=== PATIENT | male | born 1960 | race Caucasian/White ===

== ENCOUNTER 2016-11-05 23:39 | Emergency (ER) | payer MEDICAID ==
[~2016-11-05] VITALS: Ht 180.3 cm; Wt 68.0 kg
[2016-11-06 00:02] VITALS: Ht 180.3 cm; Wt 68.0 kg
[2016-11-06 02:45] LABS: ALBUMIN 3.4 g/dl (3.3-4.9); CHLORIDE 100 mmol/L (97-110)
[2016-11-06 02:46] LABS: POTASSIUM 3.3 mmol/L (3.5-5.1); SODIUM 137 mmol/L (135-144)
[2016-11-06 02:48] LABS: ALANINE AMINOTRANSFERASE 55 IU/L (13-69); ALKALINE PHOSPHATASE 80 IU/L (42-121); ANION GAP 12 (8-16); ASPARTATE AMINO TRANSFERASE 61 IU/L (15-46); BILIRUBIN,INDIRECT 1.1 mg/dl (0-1.1); BILIRUBIN,TOTAL 1.1 mg/dl (0.2-1.3); BLOOD UREA NITROGEN 18 mg/dl (7-20); CARBON DIOXIDE 28 mmol/L (21-31); CREATININE 0.78 mg/dl (0.61-1.24); GLUCOSE 105 mg/dl (70-220)
[2016-11-06 02:49] LABS: CALCIUM 8.6 mg/dl (8.4-10.2)
[2016-11-06 02:50] LABS: ACETAMINOPHEN < 10.0 ug/ml (10.0-30.0); ETHANOL < 10.0 mg/dl; SALICYLATE < 1.0 mg/dl (5.0-30.0)
[2016-11-06 02:55] LABS: BASOPHILS % 0.5 % (0.0-2.0); EOSINOPHILS % 0.7 % (0.0-7.0); HEMATOCRIT 36.4 % (42.0-52.0); HEMOGLOBIN 12.2 g/dl (14.0-18.0); LYMPHOCYTES # 1.4 10^3/ul (0.8-2.9); LYMPHOCYTES % 23.5 % (15.0-51.0); MEAN CORPUSCULAR HEMOGLOBIN 32.1 pg (29.0-33.0); MEAN CORPUSCULAR HGB CONC 33.6 g/dl (32.0-37.0); MEAN CORPUSCULAR VOLUME 95.4 fl (82.0-101.0); MEAN PLATELET VOLUME 7.9 fl (7.4-10.4); MONOCYTE # 0.7 10^3/ul (0.3-0.9); MONOCYTES % 11.3 % (0.0-11.0); NEUTROPHIL # 3.9 10^3/ul (1.6-7.5); PLATELET COUNT 286 10^3/UL (140-440); RED BLOOD COUNT 3.82 10^6/ul (4.70-6.10); RED CELL DISTRIBUTION WIDTH 12.8 % (11.5-14.5); UNCORRECTED WBC 6.1 10^3/ul (4.8-10.8); WHITE BLOOD COUNT 6.1 10^3/ul (4.8-10.8)
[2016-11-06 02:59] LABS: ADD UMIC NO; URINE BILIRUBIN (Dip) NEGATIVE (NEGATIVE); URINE BLOOD (Dip) NEGATIVE (NEGATIVE); URINE COLOR LT. YELLOW (YELLOW); URINE GLUCOSE (Dip) NEGATIVE (NEGATIVE); URINE KETONES (Dip) TRACE (NEGATIVE); URINE LEUKOCYTE ESTERASE (Dip) NEGATIVE (NEGATIVE); URINE NITRITE (Dip) NEGATIVE (NEGATIVE); URINE TOTAL PROTEIN (Dip) NEGATIVE (NEGATIVE); URINE UROBILINOGEN (Dip) 4.0 E.U./dL (0.1-1.0)
[2016-11-06 03:07] LABS: CONDITION 1
[2016-11-06 03:11] LABS: BARBITURATES Negative (NEGATIVE)
[2016-11-06 03:12] LABS: CANNABINOIDS Negative (NEGATIVE)
[2016-11-06 03:18] LABS: BENZODIAZEPINES Negative (NEGATIVE); COCAINE Positive (NEGATIVE); OPIATES Negative (NEGATIVE)
--- NOTE | 2016-11-06 04:51 | PSY ---
Date/Time of Note Date/Time of Note DATE: 11/06/16 TIME: 04:27 Psychiatric Subjective Eval Consent Pt consented to telemedicine: Yes Subjective Evaluation Patient location: emergency Chief Complaint: power found running in traffic, states having suicidal thoughts Reason for consult: safety History of present illness 56 year old homeless male with history of depression and schizophrenia was brought in by police for SI with plan. He was found walking in traffic and admitted to SI with plan to kill himself by trying to get hit by a car. He reports 3 prior suicide attempts, including one time by running into traffic and getting hit by a car. Patient reports having multiple family problems and relationship issues that have contributed to depressed mood. He reports he had problems with alcohol but has been able to be sober for sometime, and then relapsed to cocaine yesterday. He also has auditory hallucinations of voices telling him to kill himself. He is calm and cooperative in hospital. He reports he has been taking zyprexa 5mg qhs, depakote 500mg qam, effexor 150mg daily, and benadryl 50mg qhs. Unclear who is medication provider is. Patient is a difficult historian. Patient has significant abnormal body movements resembling tics. Patient initially attributes it to dehydration but then states he has had this problem on and off for some time now. Past psychiatric history 3 suicide attempts. Multiple prior psychiatric hospitalizations. Does not recall when last hospitalization was. Hospitalization: yes Family History Father completed suicide Medical history see medical record Substance Abuse Substance abuse history: Yes (cocaine, alcohol) Social History Marital status: single Level of education: 10th grade DPA/Conservatorship: No Occupation/Snf: on [employer] Psychiatric Objective Eval Physical Examination: Sleep: Insomnia Appetite: Decreased Energy: Decreased Interest: Decreased Mental Status Examination: Appearance: Poor Hygiene Eye Contact: Poor Psychomotor Activity: Agitated Behavior: Cooperative Speech: Slurred AFFECT: Constricted, Guarded Mood: Depressed Though Process: Tangential Thought Content: Hallucinations Suicidal: Yes Homicidal: No Orientation: x3 Cognition: Alert Insight: Intact Judgement: Impared Attention Span: Intact Laboratory Results Laboratory Tests Test 11/06/16 02:08 11/06/16 02:19 Urine Amphetamines Screen Negative Urine Barbiturates Negative Urine Benzodiazepines Screen Negative Urine Bilirubin NEGATIVE Urine Cannabinoids Negative Urine Clarity CLEAR Urine Cocaine Screen Positive Urine Color LT. YELLOW Urine Glucose NEGATIVE% Urine Hemoglobin NEGATIVE Urine Ketones TRACE Urine Leukocyte Esterase NEGATIVE Urine Nitrite NEGATIVE Urine Opiates Screen Negative Urine Specific [place] 1.015 Urine Total Protein NEGATIVE Urine Urobilinogen 4.0 E.U./dL Urine pH 6.0 Acetaminophen Level < 10.0ug/ml Alanine Aminotransferase (ALT/SGPT) 55IU/L Albumin 3.4g/dl Albumin/Globulin Ratio 1.30 Alkaline Phosphatase 80IU/L Anion Gap 12 Aspartate Amino Transf (AST/SGOT) 61IU/L Basophils # 0.010^3/ul Basophils % 0.5% Blood Urea Nitrogen 18mg/dl Calcium Level 8.6mg/dl Carbon Dioxide Level 28mmol/L Chloride Level 100mmol/L Creatinine 0.78mg/dl Direct Bilirubin 0.00mg/dl Eosinophils # 0.010^3/ul Eosinophils % 0.7% Ethyl Alcohol Level < 10.0mg/dl Globulin 2.60g/dl Glucose Level 105mg/dl Hematocrit 36.4% Hemoglobin 12.2g/dl Indirect Bilirubin 1.1mg/dl Lymphocytes # 1.410^3/ul Lymphocytes % 23.5% Mean Corpuscular Hemoglobin 32.1pg Mean Corpuscular Hemoglobin Concent 33.6g/dl Mean Corpuscular Volume 95.4fl Mean Platelet Volume 7.9fl Monocytes # 0.710^3/ul Monocytes % 11.3% Neutrophils # 3.910^3/ul Neutrophils % 64.0% Nucleated Red Blood Cells # 0.010^3/ul Nucleated Red Blood Cells % 0.0/100WBC Platelet Count 41883^3/UL Potassium Level 3.3mmol/L Red Blood Count 3.8210^6/ul Red Cell Distribution Width 12.8% Salicylates Level < 1.0mg/dl Sodium Level 137mmol/L Total Bilirubin 1.1mg/dl Total Protein 6.0g/dl White Blood Count 6.110^3/ul Assessment and Plan Assessment/Diagnosis [place] I: F39 Mood disorder unspecified. r/o bipolar disorder, r/o substance induced mood disorder [place] II: deferred Austin III: abnormal body movements Austin IV: family dynamics, housing [place] V: GAF 30 Recommendation/Plan Medication Management Zyprexa 5mg PO QHS for psychosis, give first dose now. Monitor for any exacerbation of abnormal body movements. Continue home medications if they can be verified. Follow-up/Disposition Recommend placing/continuing 5150 hold for imminent danger to self evidenced by recent suicidal gesture, active SI with plan, and history of multiple suicide attempts. Transfer to inpatient psychiatry when medically stable. 5150 Recommendation: Place Hold LETTY THOMPSON MD Nov 06, 2016 04:37
[2016-11-06] MEDS ORDERED: POTASSIUM CHLORIDE (SR) 20 MEQ TAB PO STA (05:10)
--- NOTE | 2016-11-06 05:13 | ERD ---
ER Documentation Chief Complaint Date/Time DATE: 11/06/16 TIME: 05:08 Chief Complaint power found running in traffic, states having suicidal thoughts HPI This 56-year-old male presents to the morning of [employer] Monday stating that he feels like harming himself. He was standing in the [id number] disrupting traffic and was brought in by paramedics. States that he has a history of depression with previous suicide attempts that he feels like he was to . He denies wanting to hurt anyone else. He denies any physical pain symptoms currently. She taking his medication. States that he has not been taking his medications properly. ROS All systems reviewed and are negative except as per history of present illness. PMhx/Soc History of Surgery: Yes (left leg) Anesthesia Reaction: No Hx Neurological Disorder: No Hx Respiratory Disorders: No Hx Cardiac Disorders: No Hx Psychiatric Problems: Yes (schizophrenia, major depression) Hx Miscellaneous Medical Probl: Yes (arthritis) Hx Alcohol Use: Yes (few times per month) Hx Substance Use: Yes (marijuana but not daily) Hx Tobacco Use: Yes (few times per month) Smoking Status: Current some day smoker Physical Exam Vitals Vital Signs Date Time Temp Pulse Resp B/P Pulse Ox O2 Delivery O2 Flow Rate FiO2 11/06/16 00:02 97.6 76 20 131/63 99 Physical Exam Const: [] No distress Head: Atraumatic Eyes: Normal Conjunctiva ENT: Normal External Ears, Nose and Mouth. Neck: Full range of motion..~ No meningismus. Resp: Clear to auscultation bilaterally Cardio: Regular rate and rhythm, no murmurs Abd: Soft, non tender, non distended. Normal bowel sounds Skin: No petechiae or rashes Back: No midline or flank tenderness Ext: No cyanosis, or edema Neur: Awake and alert and oriented 3, no focal deficits Psych: Normal Mood and Affect Result Diagram: 11/06/1621811/06/16218 Results 24 hrs Laboratory Tests Test 11/06/16 02:08 11/06/16 02:19 Urine Amphetamines Screen Negative Urine Barbiturates Negative Urine Benzodiazepines Screen Negative Urine Bilirubin NEGATIVE Urine Cannabinoids Negative Urine Clarity CLEAR Urine Cocaine Screen Positive Urine Color LT. YELLOW Urine Glucose NEGATIVE% Urine Hemoglobin NEGATIVE Urine Ketones TRACE Urine Leukocyte Esterase NEGATIVE Urine Nitrite NEGATIVE Urine Opiates Screen Negative Urine Specific [place] 1.015 Urine Total Protein NEGATIVE Urine Urobilinogen 4.0 E.U./dL Urine pH 6.0 Acetaminophen Level < 10.0ug/ml Alanine Aminotransferase (ALT/SGPT) 55IU/L Albumin 3.4g/dl Albumin/Globulin Ratio 1.30 Alkaline Phosphatase 80IU/L Anion Gap 12 Aspartate Amino Transf (AST/SGOT) 61IU/L Basophils # 0.010^3/ul Basophils % 0.5% Blood Urea Nitrogen 18mg/dl Calcium Level 8.6mg/dl Carbon Dioxide Level 28mmol/L Chloride Level 100mmol/L Creatinine 0.78mg/dl Direct Bilirubin 0.00mg/dl Eosinophils # 0.010^3/ul Eosinophils % 0.7% Ethyl Alcohol Level < 10.0mg/dl Globulin 2.60g/dl Glucose Level 105mg/dl Hematocrit 36.4% Hemoglobin 12.2g/dl Indirect Bilirubin 1.1mg/dl Lymphocytes # 1.410^3/ul Lymphocytes % 23.5% Mean Corpuscular Hemoglobin 32.1pg Mean Corpuscular Hemoglobin Concent 33.6g/dl Mean Corpuscular Volume 95.4fl Mean Platelet Volume 7.9fl Monocytes # 0.710^3/ul Monocytes % 11.3% Neutrophils # 3.910^3/ul Neutrophils % 64.0% Nucleated Red Blood Cells # 0.010^3/ul Nucleated Red Blood Cells % 0.0/100WBC Platelet Count 38723^3/UL Potassium Level 3.3mmol/L Red Blood Count 3.8210^6/ul Red Cell Distribution Width 12.8% Salicylates Level < 1.0mg/dl Sodium Level 137mmol/L Total Bilirubin 1.1mg/dl Total Protein 6.0g/dl White Blood Count 6.110^3/ul Procedures/MDM Patient with stated suicidal intentions with history of depression. Medical screening exam performed by myself and patient is medically cleared in the sense that there are no medical conditions precluding him from psychiatric admission. Is advised by the [facility] psychiatrists in stating he is suicidal a [place] psychiatrist recommended a 5150 hold on the patient. Patient is calm and stable emergency room. We'll attempt to find placement for him in a psychiatric facility. Potassium returned mildly low he was given acute or tablet. Departure Diagnosis: Primary Impression: Suicidal ideation Additional Impressions: Major depression Hypokalemia Normocytic anemia Condition: Stable BRIAN MARCH DO Nov 06, 2016 05:13
[2016-11-06] MEDS ORDERED: OLANZAPINE 5 MG TAB PO ONE (17:00)
[2016-11-07 12:55] VITALS: BP 108/71; PULSE 78; RESP 16; TEMP 98.6
== END 2016-11-07 13:02 ==
LOC: E/R 23:39 → EDSEX 23:39 → E/R 11-07 13:02
DX: F32.9 Major depressive disorder, single episode, unspecified (principal); R45.851 Suicidal ideations; E87.6 Hypokalemia; D64.9 Anemia, unspecified; F17.210 Nicotine dependence, cigarettes, uncomplicated
CPT/HCPCS: 80053; 80306; 80307; 81003; 85025; Z7502; Z7610

== ENCOUNTER 2017-09-03 20:10 | Emergency (ER) | payer SELFPAY | END 2017-09-03 21:12 | disposition left against medical advice (07) | LOC: E/R 20:10 | DX: Z53.21 Procedure and treatment not carried out due to patient leaving prior to being seen by health care provider (principal) ==